=== PATIENT | female | born 1985 | race American Indian/Alaskan Native ===

== ENCOUNTER 2017-04-20 09:00 | Emergency (ER) | payer OTHER ==
[2017-04-20 09:38] LABS: Basophils % (Auto) 0.4 % (0.0-1.8); Eosinophils % (Auto) 1.5 % (0.0-4.3); Hematocrit 33.6 % (30.3-42.9); Hemoglobin 10.4 gm/dl (10.1-14.3); Mean Corpuscular HGB Conc 31 % (30-34); Mean Corpuscular Volume 74 fl (79-97); Platelet Count 285 K/mm3 (140-440); Red Blood Count 4.56 M/mm3 (3.65-5.03); Red Cell Distribution Width 16.3 % (13.2-15.2)
[2017-04-20 09:48] LABS: Mean Corpuscular Hemoglobin 23 pg (28-32)
[2017-04-20 09:54] LABS: Alanine Aminotransferase 19 units/L (7-56); Albumin 3.4 g/dL (3.9-5); Alkaline Phosphatase 46 units/L (35-129); Anion Gap 16 mmol/L; BUN/Creatinine Ratio 16; Bilirubin,Total < 0.20 mg/dL (0.1-1.2); Blood Urea Nitrogen 8 mg/dL (7-17); Calcium 8.9 mg/dL (8.4-10.2); Carbon Dioxide 23 mmol/L (22-30); Chloride 102.8 mmol/L (98-107); Glucose 95 mg/dL (65-100); Lipase 10 units/L (13-60); Potassium 4.2 mmol/L (3.6-5.0); Sodium 138 mmol/L (137-145); Total Protein 6.8 g/dL (6.3-8.2)
[2017-04-20 09:59] LABS: Bacteria,Urine 1+ /HPF (Negative); Bilirubin,Urine NEG (Negative); Blood,Urine NEG (Negative); Ketones,Urine NEG (Negative); Leukocyte Esterase,Urine SM (Negative); Mucus,Urine FEW /HPF; Nitrite,Urine NEG (Negative); Protein,Urine <15 mg/dL mg/dL (Negative); Urobilinogen,Urine < 2.0 mg/dL (<2.0)
[2017-04-20] MEDS ORDERED: SUBLIMAZE IV ONE (12:50)
[2017-04-20 15:27] LABS: Bacteria,Urine 1+ /HPF (Negative); Bilirubin,Urine NEG (Negative); Blood,Urine NEG (Negative); Ketones,Urine NEG (Negative); Leukocyte Esterase,Urine LG (Negative); Mucus,Urine 2+ /HPF; Nitrite,Urine NEG (Negative); Protein,Urine <15 mg/dL mg/dL (Negative); Urobilinogen,Urine < 2.0 mg/dL (<2.0)
--- NOTE | 2017-04-20 16:17 | Ultrasound Report ---
FINAL REPORT PROCEDURE: US OB > = 14 WEEKS FETUS TECHNIQUE: Real-time transabdominal sonography of the uterus, placenta, amniotic fluid, adnexa, and fetus was performed with image documentation. Measurements were obtained to determine age/size. M-mode Doppler was used to document heartbeat. CPT 07473 HISTORY: vaginal bleeding and abdominal pain COMPARISON: No prior studies are available for comparison. FINDINGS: ADDITIONAL GESTATION: None. GENERAL: IUP: Single living intrauterine . Position: Breech Placental position: Posterior, without previa. Amniotic fluid volume: Normal. MATERNAL: Cervical length: 3.2 cm. Internal Os: Closed. FETUS: Heart rate and rhythm: 149 beats per minute MEASUREMENTS: BPD: 3.2 cm HC: 12.1 cm AC: 10 cm FL: 1.9 cm Mean Gestational Age (composite criteria): 16 weeks 0 days. Ratio biometry: Normal. Estimated Weight: 138 grams. IMPRESSION: Single intrauterine gestation at 16 weeks 0 days. Estimated due date based on this exam: October 05, 2017.
--- NOTE | 2017-04-20 16:22 | Emergency Department Report ---
ED General Adult HPI - General Chief complaint: Abdominal Pain Stated complaint: ABDOMINAL PAIN Time Seen by Provider: 04/20/17 12:42 Source: patient Mode of arrival: Ambulatory Limitations: No Limitations - History of Present Illness Initial comments: Patient is a 31-year-old female who presents with lower back pain and abdominal pain. Patient states that her pain is an 8 out of 10 and radiates down her body nothing makes the back pain better laying down makes her back pain worse she states that she works at [employer] and she was pushing some cards when she had some really bad back pain. Patient denies having any nausea or vomiting. She states that she has follow-up with an [facility] [employer] and she is 15 weeks . Patient states that she has some vaginal bleeding and some abdominal pain and she was concerned about her baby. Severity scale (0 -10): 10 - Related Data Previous Rx's Medication Instructions Recorded Last Taken Type Acetaminophen 500 mg PO Q6HR #30 tablet 04/20/17 Unknown Rx Allergies Allergy/AdvReac Type Severity Reaction Status Date / Time No Known Allergies Allergy Unverified 04/20/17 09:15 ED Review of Systems ROS: Stated complaint: ABDOMINAL PAIN Other details as noted in HPI Constitutional: denies: chills, fever Eyes: denies: eye pain, eye discharge, vision change ENT: denies: ear pain, throat pain Respiratory: denies: cough, shortness of breath, wheezing Cardiovascular: denies: chest pain, palpitations Endocrine: no symptoms reported Gastrointestinal: abdominal pain. denies: nausea, diarrhea Genitourinary: denies: urgency, dysuria, discharge Musculoskeletal: back pain. denies: joint swelling, arthralgia Skin: denies: rash, lesions Neurological: denies: headache, weakness, paresthesias Psychiatric: denies: anxiety, depression Hematological/Lymphatic: denies: easy bleeding, easy bruising ED Past Medical Hx - Past Medical History Previous Medical History?: No - Surgical History Past Surgical History?: No - Social History Smoking Status: Never Smoker Substance Use Type: None - Medications Home Medications: Home Medications Medication Instructions Recorded Confirmed Last Taken Type Acetaminophen 500 mg PO Q6HR #30 tablet 04/20/17 Unknown Rx ED Physical Exam - General Limitations: No Limitations General appearance: alert, in no apparent distress - Head Head exam: Present: atraumatic, normocephalic - Eye Eye exam: Present: normal appearance - ENT ENT exam: Present: mucous membranes moist - Neck Neck exam: Present: normal inspection - Respiratory Respiratory exam: Present: normal lung sounds bilaterally. Absent: respiratory distress - Cardiovascular Cardiovascular Exam: Present: regular rate, normal rhythm. Absent: systolic murmur, diastolic murmur, rubs, gallop - GI/Abdominal GI/Abdominal exam: Present: soft, normal bowel sounds - Extremities Exam Extremities exam: Present: normal inspection - Back Exam Back exam: Present: normal inspection - Neurological Exam Neurological exam: Present: alert, oriented X3 - Psychiatric Psychiatric exam: Present: normal affect, normal mood - Skin Skin exam: Present: warm, dry, intact, normal color. Absent: rash ED Course Vital Signs 04/20/17 04/20/17 04/20/17 09:15 12:53 13:37 Temperature 98.1 F 98.4 F Pulse Rate 82 77 Respiratory 16 20 20 Rate Blood Pressure 130/68 Blood Pressure 126/65 [Left] O2 Sat by Pulse 100 Oximetry ED Medical Decision Making - Lab Data Result diagrams: 04/20/17 09:22 04/20/17 09:22 Lab Results 04/20/17 04/20/17 04/20/17 Range/Units 09:22 09:22 13:02 WBC 9.0 (4.5-11.0) K/mm3 RBC 4.56 (3.65-5.03) M/mm3 Hgb 10.4 (10.1-14.3) gm/dl Hct 33.6 (30.3-42.9) % MCV 74 L (79-97) fl MCH 23 L (28-32) pg MCHC 31 (30-34) % RDW 16.3 H (13.2-15.2) % Plt Count 285 (140-440) K/mm3 Lymph % (Auto) 26.9 (13.4-35.0) % [place] % (Auto) 7.7 H (0.0-7.3) % Eos % (Auto) 1.5 (0.0-4.3) % Baso % (Auto) 0.4 (0.0-1.8) % Lymph # 2.4 (1.2-5.4) K/mm3 [place] # 0.7 (0.0-0.8) K/mm3 Eos # 0.1 (0.0-0.4) K/mm3 Baso # 0.0 (0.0-0.1) K/mm3 Seg Neutrophils % 63.5 (40.0-70.0) % Seg Neutrophils # 5.7 (1.8-7.7) K/mm3 Sodium 138 (137-145) mmol/L Potassium 4.2 (3.6-5.0) mmol/L Chloride 102.8 (98-107) mmol/L Carbon Dioxide 23 (22-30) mmol/L Anion Gap 16 mmol/L BUN 8 (7-17) mg/dL Creatinine 0.5 L (0.7-1.2) mg/dL Estimated GFR > 60 ml/min BUN/Creatinine Ratio 16 % Glucose 95 (65-100) mg/dL Calcium 8.9 (8.4-10.2) mg/dL Total Bilirubin < 0.20 (0.1-1.2) mg/dL AST 13 (5-40) units/L ALT 19 (7-56) units/L Alkaline Phosphatase 46 (35-129) units/L Total Protein 6.8 (6.3-8.2) g/dL Albumin 3.4 L (3.9-5) g/dL Albumin/Globulin Ratio 1.0 % Lipase 10 L (13-60) units/L HCG, Qual (Negative) Urine Color (Yellow) Urine Turbidity (Clear) Urine pH (5.0-7.0) Ur Specific [place] (1.003-1.030) Urine Protein (Negative) mg/dL Urine Glucose (UA) (Negative) mg/dL Urine Ketones (Negative) mg/dL Urine Blood (Negative) Urine Nitrite (Negative) Urine Bilirubin (Negative) Urine Urobilinogen (<2.0) mg/dL Ur Leukocyte Esterase (Negative) Urine WBC (Auto) (0.0-6.0) /HPF Urine RBC (Auto) (0.0-6.0) /HPF U Epithel Cells (Auto) (0-13.0) /HPF Urine Bacteria (Auto) (Negative) /HPF Calcium Oxalate Crystal Urine Mucus /HPF Blood Type O POSITIVE Antibody Screen Negative 04/20/17 04/20/17 04/20/17 Range/Units 13:36 15:00 Unknown WBC (4.5-11.0) K/mm3 RBC (3.65-5.03) M/mm3 Hgb (10.1-14.3) gm/dl Hct (30.3-42.9) % MCV (79-97) fl MCH (28-32) pg MCHC (30-34) % RDW (13.2-15.2) % Plt Count (140-440) K/mm3 Lymph % (Auto) (13.4-35.0) % [place] % (Auto) (0.0-7.3) % Eos % (Auto) (0.0-4.3) % Baso % (Auto) (0.0-1.8) % Lymph # (1.2-5.4) K/mm3 [place] # (0.0-0.8) K/mm3 Eos # (0.0-0.4) K/mm3 Baso # (0.0-0.1) K/mm3 Seg Neutrophils % (40.0-70.0) % Seg Neutrophils # (1.8-7.7) K/mm3 Sodium (137-145) mmol/L Potassium (3.6-5.0) mmol/L Chloride (98-107) mmol/L Carbon Dioxide (22-30) mmol/L Anion Gap mmol/L BUN (7-17) mg/dL Creatinine (0.7-1.2) mg/dL Estimated GFR ml/min BUN/Creatinine Ratio % Glucose (65-100) mg/dL Calcium (8.4-10.2) mg/dL Total Bilirubin (0.1-1.2) mg/dL AST (5-40) units/L ALT (7-56) units/L Alkaline Phosphatase (35-129) units/L Total Protein (6.3-8.2) g/dL Albumin (3.9-5) g/dL Albumin/Globulin Ratio % Lipase (13-60) units/L HCG, Qual Positive (Negative) Urine Color Yellow Yellow (Yellow) Urine Turbidity Clear Clear (Clear) Urine pH 6.0 7.0 (5.0-7.0) Ur Specific [place] 1.025 1.019 (1.003-1.030) Urine Protein <15 mg/dl <15 mg/dl (Negative) mg/dL Urine Glucose (UA) Neg Neg (Negative) mg/dL Urine Ketones Neg Neg (Negative) mg/dL Urine Blood Neg Neg (Negative) Urine Nitrite Neg Neg (Negative) Urine Bilirubin Neg Neg (Negative) Urine Urobilinogen < 2.0 < 2.0 (<2.0) mg/dL Ur Leukocyte Esterase Lg Sm (Negative) Urine WBC (Auto) 19.0 H 5.0 (0.0-6.0) /HPF Urine RBC (Auto) 7.0 2.0 (0.0-6.0) /HPF U Epithel Cells (Auto) 21.0 H 6.0 (0-13.0) /HPF Urine Bacteria (Auto) 1+ 1+ (Negative) /HPF Calcium Oxalate Crystal Few Urine Mucus 2+ Few /HPF Blood Type Antibody Screen - Radiology Data Radiology results: report reviewed, image reviewed Transvaginal ultrasound: Shows intrauterine at 16 weeks heart rate 149 - Medical Decision Making Cdx: Vaginal bleeding in Differential multiple diagnosis: Ectopic ,slipped disk, lumbar sacral strain, placenta previa I will get CBC, CMP, IV pain medication, oral pain medication, transvaginal ultrasound urinalysis and test Patient's transvaginal ultrasound shows intrauterine ectopic is ruled out. Patient does not have placenta previa she most likely had vaginal spotting in . I will give patient a work note to go home with. Patient has had lower back pain but it should reside out give her a temporary work notice. Discussed plan with patient patient agrees with plan Critical care attestation.: If time is entered above; I have spent that time in minutes in the direct care of this critically ill patient, excluding procedure time. ED Disposition Clinical Impression: Vaginal bleeding in Lower back injury Qualifiers: Encounter type: initial encounter Qualified Code(s): S39.92XA - Unspecified injury of lower back, initial encounter Lower back pain Qualifiers: Chronicity: acute Back pain laterality: bilateral Sciatica presence: without sciatica Qualified Code(s): M54.5 - Low back pain Qualifiers: Weeks of gestation: 16 weeks Qualified Code(s): Z3A.16 - 16 weeks gestation of Disposition: DC-01 TO HOME OR SELFCARE Is pt being admited?: No Does the pt Need Aspirin: No Condition: Stable Instructions: Low Back Strain (ED), Abdominal Pain (ED), Core Strengthening Exercises (GEN) Prescriptions: Acetaminophen 500 mg PO Q6HR #30 tablet Referrals: EFRAIN TAFOYA MD [Staff Physician] - 3-5 Days Forms: Work/School Release Form(ED)
[2017-04-20 17:43] VITALS: BP 116/57
== END 2017-04-20 17:45 | disposition home or self-care (01) ==
LOC: ED 09:00
DX: O46.92 Antepartum hemorrhage, unspecified, second trimester (principal); O26.892 Other specified pregnancy related conditions, second trimester; M54.5 Low back pain; S39.82XA Other specified injuries of lower back, initial encounter; Z3A.16 16 weeks gestation of pregnancy; X58.XXXA Exposure to other specified factors, initial encounter; Y93.89 Activity, other specified; Y92.89 Other specified places as the place of occurrence of the external cause; Y99.8 Other external cause status
CPT/HCPCS: 36415; 76805; 80053; 81001; 83690; 84703; 85025; 86850; 86900; 86901; 96374; 99284; J3010